=== PATIENT | female | born 1965 | race Caucasian/White ===

== ENCOUNTER 2017-12-23 08:56 | Outpatient (CLI) | payer BC ==
[~2017-12-23 08:56] MED LIST: AMOX-580 PO; DOCU-28 PO; FAMO-128 PO; HYDR-565 PO; Hydrocodone Bit/Acetaminophen PO; ONDA4TAB12 PO
== END 2017-12-23 09:55 | disposition home or self-care (01) ==
LOC: ORTHO 08:56
PROVIDERS: ATTEND Nurse Practitioner Family
DX: S62.622A Displaced fracture of middle phalanx of right middle finger, initial encounter for closed fracture (principal); S61.451A Open bite of right hand, initial encounter; I10 Essential (primary) hypertension; Z88.5 Allergy status to narcotic agent; W54.0XXA Bitten by dog, initial encounter; Y93.89 Activity, other specified; Y92.89 Other specified places as the place of occurrence of the external cause; Y99.8 Other external cause status
CPT/HCPCS: 99213

== ENCOUNTER 2017-12-28 14:07 | Outpatient (CLI) | payer BC ==
[~2017-12-28] VITALS: Ht 162.6 cm; Wt 83.4 kg
[2017-12-28 14:06] VITALS: BP 148/74
== END 2017-12-28 14:54 | disposition home or self-care (01) ==
LOC: ORTHO 14:07
PROVIDERS: ATTEND Nurse Practitioner Family
DX: S62.622D Displaced fracture of middle phalanx of right middle finger, subsequent encounter for fracture with routine healing (principal); S61.451D Open bite of right hand, subsequent encounter; I10 Essential (primary) hypertension; W54.0XXD Bitten by dog, subsequent encounter
CPT/HCPCS: 99214; A6449

== ENCOUNTER 2018-01-18 13:07 | Outpatient (CLI) | payer BC ==
[~2018-01-18 13:07] MED LIST changes: -AMOX-580 PO; -HYDR-565 PO
[2018-01-18 17:00] VITALS: BP 134/94
== END 2018-01-18 13:48 | disposition home or self-care (01) ==
LOC: ORTHO 13:07
PROVIDERS: ATTEND Nurse Practitioner Family
DX: S66.801D Unspecified injury of other specified muscles, fascia and tendons at wrist and hand level, right hand, subsequent encounter (principal); S61.451D Open bite of right hand, subsequent encounter; S62.602D Fracture of unspecified phalanx of right middle finger, subsequent encounter for fracture with routine healing; W54.0XXD Bitten by dog, subsequent encounter; Z88.5 Allergy status to narcotic agent
CPT/HCPCS: 99215

== ENCOUNTER 2018-01-19 11:31 | Outpatient (CLI) | payer BC ==
[2018-01-19 12:38] VITALS: BP 157/82
== END 2018-01-19 12:44 | disposition home or self-care (01) ==
LOC: ORTHO 11:31
PROVIDERS: ATTEND Nurse Practitioner Family
DX: S62.612D Displaced fracture of proximal phalanx of right middle finger, subsequent encounter for fracture with routine healing (principal); I10 Essential (primary) hypertension; X58.XXXD Exposure to other specified factors, subsequent encounter
CPT/HCPCS: 73120; 99213

== ENCOUNTER 2018-02-09 10:58 | Outpatient (CLI) | payer BC | END 2018-02-09 11:15 | disposition home or self-care (01) | LOC: ORTHO 10:58 | PROVIDERS: ATTEND Nurse Practitioner Family | DX: S66.801D Unspecified injury of other specified muscles, fascia and tendons at wrist and hand level, right hand, subsequent encounter (principal); S61.451D Open bite of right hand, subsequent encounter; S62.609D Fracture of unspecified phalanx of unspecified finger, subsequent encounter for fracture with routine healing; Z88.8 Allergy status to other drugs, medicaments and biological substances; W54.0XXD Bitten by dog, subsequent encounter | CPT/HCPCS: 99212 ==

== ENCOUNTER 2018-02-16 11:33 | Outpatient (CLI) | payer BC | END 2018-02-16 11:52 | disposition home or self-care (01) | LOC: ORTHO 11:33 | PROVIDERS: ATTEND Nurse Practitioner Family | DX: S66.801D Unspecified injury of other specified muscles, fascia and tendons at wrist and hand level, right hand, subsequent encounter (principal); S61.451D Open bite of right hand, subsequent encounter; S62.609 Fracture of unspecified phalanx of unspecified finger; I10 Essential (primary) hypertension; Z88.5 Allergy status to narcotic agent; X58.XXXD Exposure to other specified factors, subsequent encounter | CPT/HCPCS: 99212 ==

== ENCOUNTER 2021-05-20 17:55 | Inpatient (IN) | payer BC ==
[~2021-05-20] VITALS: Ht 167.6 cm; Wt 97.7 kg
[2021-05-20] MEDS ORDERED: normal saline 1000ML IV soln IVB ONE (18:05)
[2021-05-20] MEDS ORDERED: ondansetron/PF 4mg/2ml inj IV ONE (18:05)
[2021-05-20 18:19] LABS: BASOPHILS # (AUTO) 0.1 X10'3 (0-0.2); BASOPHILS % (AUTO) 0.5 % (0-1); EOSINOPHILS # (AUTO) 0.1 X10'3 (0-0.9); EOSINOPHILS % (AUTO) 1.2 % (0-6); HEMATOCRIT 45.3 % (35.0-45.0); HEMOGLOBIN 15.2 g/dl (12.0-16.0); LYMPHOCYTES # (AUTO) 3.6 X10'3 (1.1-4.8); LYMPHOCYTES % (AUTO) 32.5 % (21-51); MEAN CORPUSCULAR HGB CONC 33.6 g/dL (33.0-36.5); MEAN CORPUSCULAR VOLUME 92.4 FL (78-98); MEAN PLATELET VOLUME 7.6 FL (7.4-10.4); MONOCYTES # (AUTO) 0.6 X10'3 (0-0.9); MONOCYTES % (AUTO) 5.4 % (2-12); NEUTROPHILS # (AUTO) 6.7 X10'3 (1.8-7.7); NEUTROPHILS % (AUTO) 60.4 % (42-75); PLATELET COUNT 349 X10'3 (140-440); RED CELL DISTRIBUTION WIDTH 13.9 % (11.5-14.5)
[2021-05-20 18:35] LABS: ALANINE AMINOTRANSFERASE 50 U/L (12-78); ALBUMIN 4.5 G/DL (3.4-5.0); ALBUMIN/GLOBULIN RATIO 1.1 (1.1-1.5); ALKALINE PHOSPHATASE 117 IU/L (46-116); ANION GAP 17 (8-16); ASPARTATE AMINO TRANSFERASE 30 U/L (10-37); BILIRUBIN,TOTAL 0.4 MG/DL (0.1-1.0); BLOOD UREA NITROGEN 16 MG/DL (7-18); BUN/CREATININE RATIO 18.4 (6.6-38.0); CALCIUM 10.4 MG/DL (8.5-10.1); CHLORIDE 104 MMOL/L (99-107); CREATININE 0.87 MG/DL (0.40-0.90); GLUCOSE 146 MG/DL (70-104); SODIUM 144 MMOL/L (135-145); TOTAL CARBON DIOXIDE 22.7 MMOL/L (24-32); TOTAL PROTEIN 8.5 G/DL (6.4-8.2); eGFR 68 ML/MIN
[2021-05-20 18:36] LABS: POTASSIUM 3.1 MMOL/L (3.5-5.1)
[2021-05-20 18:42] LABS: ETHANOL < 0.010 GM/DL (0.0-0.010); LIPASE 591 U/L (73-393)
[2021-05-20] MEDS ORDERED: CefTRIAXone 2gm/D5W 50ml BAG 50 ML IV ONE (19:15)
[2021-05-20] MEDS ORDERED: normal saline 1000ML IV soln IV ONE (19:15)
[2021-05-20] MEDS ORDERED: iohexol 350MG/ML 100ml bottle IV ONE (19:34)
[2021-05-20 19:40] LABS: URINE AMPHETAMINE SCREEN NEGATIVE (Neg); URINE BARBITUATE SCREEN NEGATIVE (Neg); URINE BENZODIAZEPINES SCREEN NEGATIVE (Neg); URINE CANNABINOID SCREEN POSITIVE (Neg); URINE COCAINE SCREEN NEGATIVE (Neg); URINE METHADONE SCREEN NEGATIVE (Neg); URINE OPIATE SCREEN NEGATIVE (Neg); URINE PHENCYCLIDINE SCREEN NEGATIVE (Neg)
[2021-05-20 19:47] LABS: CLARITY,URINE CLEAR (Clear); COLOR,URINE YELLOW (Yellow); UA COLLECTION TYPE STRAIGHT CATH
[2021-05-20 19:48] LABS: GLUCOSE, URINE NEGATIVE (Neg); KETONES,URINE 40 mg/dl (Neg); LEUKOCYTE ESTERASE ,URINE NEGATIVE (Neg); NITRITES, URINE NEGATIVE (Neg); OCCULT BLOOD,URINE TRACE-LYSED (Neg); PROTEIN,URINE TRACE mg/dl (Neg); UROBILINOGEN,URINE 0.2 E.U/dL (0.2-1.0)
[2021-05-20 19:57] LABS: HYALINE CASTS 0-3 /LPF (NEGATIVE); SQUAMOUS EPITHELIAL CELL,UR FEW /LPF (FEW)
[2021-05-20 19:58] LABS: BACTERIA,URINE 1+ /HPF (Neg)
[2021-05-20 20:44] LABS: ABG HCO3 21.4 mmol/L (22.0-26.0); ABG OXYGEN SATURATION 97.1 % (94-97); ABG PCO2 (T) 31.4 mmHg (32.0-45.0); ABG PO2 (T) 89.2 mmHg (75.0-100.0); ALLEN'S TEST POSITIVE; FCOHb 1.3 % (0.0-3.9); FO2Hb 95.8 % (94-97); PATIENT TEMPERATURE 36.1; TOTAL HEMOGLOBIN 13.6 G/dl (12.0-16.0)
[2021-05-20] MEDS ORDERED: temazepam 15mg capsule PO PRN (21:00)
[2021-05-20] MEDS ORDERED: HYDROcodone/acetaminophen 5mg/325mg tablet PO PRN (22:40)
[2021-05-20] MEDS ORDERED: ondansetron 4mg rapidly disintigrating tab PO PRN (22:40)
[2021-05-20] MEDS ORDERED: mag hydrox/Alum hydrox/simeth 30ml oral suspension PO PRN (22:40)
[2021-05-20] MEDS ORDERED: potassium Cl 40MEQ/1/2NS 520ml 520 ML IV PRN ×2 (22:40)
[2021-05-20] MEDS ORDERED: ondansetron/PF 4mg/2ml inj IV PRN (22:40)
[2021-05-20] MEDS ORDERED: bisacodyl 10mg suppository rectal RC PRN (22:40)
[2021-05-20] MEDS ORDERED: acetaminophen 325mg tablet PO PRN ×2 (22:40)
[2021-05-20] MEDS ORDERED: diphenhydrAMINE 50 mg/ml inj IV PRN (22:40)
[2021-05-20] MEDS ORDERED: normal saline 1000ml 1,000 ML IV SCH (22:40)
[2021-05-20] MEDS ORDERED: magnesium hydroxide 30ml (MOM) UD suspension PO PRN (22:40)
[2021-05-20] MEDS ORDERED: acetaminophen 650mg rectal suppository RC PRN (22:40)
[2021-05-20] MEDS ORDERED: diphenhydrAMINE 25mg capsule PO PRN (22:40)
[2021-05-20] MEDS ORDERED: potassium Cl 20 mEq SR tablet PO PRN ×2 (22:40)
[2021-05-20] MEDS ORDERED: HYDROcodone/acetaminophen 10/325mg tab PO PRN (22:40)
[2021-05-20 23:08] LABS: HEMOGLOBIN A1C 6.1 % (4.5-6.2)
[2021-05-20 23:15] LABS: MAGNESIUM 2.5 MG/DL (1.5-2.4); PHOSPHORUS 1.9 MG/DL (2.3-4.5)
[2021-05-20 23:43] LABS: D-DIMER 0.27 MG/L FEU (0-0.50); PARTIAL THROMBOPLASTIN TIME 26 SECONDS (22-32)
[2021-05-21 02:31] LABS: BASOPHILS % (AUTO) 0.1 % (0-1); EOSINOPHILS % (AUTO) 0.3 % (0-6); HEMATOCRIT 38.2 % (35.0-45.0); HEMOGLOBIN 12.7 g/dl (12.0-16.0); LYMPHOCYTES # (AUTO) 1.1 X10'3 (1.1-4.8); LYMPHOCYTES % (AUTO) 15.4 % (21-51); MEAN CORPUSCULAR HEMOGLOBIN 30.9 PG (27.0-31.0); MEAN CORPUSCULAR HGB CONC 33.2 g/dL (33.0-36.5); MEAN CORPUSCULAR VOLUME 92.9 FL (78-98); MEAN PLATELET VOLUME 7.4 FL (7.4-10.4); MONOCYTES # (AUTO) 0.4 X10'3 (0-0.9); MONOCYTES % (AUTO) 5.3 % (2-12); NEUTROPHILS # (AUTO) 5.5 X10'3 (1.8-7.7); NEUTROPHILS % (AUTO) 78.9 % (42-75); PLATELET COUNT 255 X10'3 (140-440); RED BLOOD COUNT 4.12 X10'6 (4.20-5.60); RED CELL DISTRIBUTION WIDTH 13.7 % (11.5-14.5)
[2021-05-21 02:42] LABS: ALANINE AMINOTRANSFERASE 40 U/L (12-78); ALBUMIN 3.1 G/DL (3.4-5.0); ALBUMIN/GLOBULIN RATIO 0.9 (1.1-1.5); ALKALINE PHOSPHATASE 81 IU/L (46-116); ANION GAP 7 (8-16); ASPARTATE AMINO TRANSFERASE 24 U/L (10-37); BILIRUBIN,TOTAL 0.4 MG/DL (0.1-1.0); BLOOD UREA NITROGEN 10 MG/DL (7-18); BUN/CREATININE RATIO 17.2 (6.6-38.0); CALCIUM 8.4 MG/DL (8.5-10.1); CHLORIDE 112 MMOL/L (99-107); CREATININE 0.58 MG/DL (0.40-0.90); GLUCOSE 96 MG/DL (70-104); POTASSIUM 4.1 MMOL/L (3.5-5.1); SODIUM 144 MMOL/L (135-145); TOTAL CARBON DIOXIDE 25.2 MMOL/L (24-32); TOTAL PROTEIN 6.4 G/DL (6.4-8.2); eGFR > 90 ML/MIN
--- NOTE | 2021-05-21 06:43 | NUR ---
pt ok to speak with over phone. updated on POC for pt. Pt has no distress at this time.
--- NOTE | 2021-05-21 07:15 | NUR ---
pt claustrophobic, mri form filled out and sent. page to hospitalist for medications for MRI. awaiting call back.
[2021-05-21] MEDS ORDERED: losartan 50mg tablet PO SCH (08:00)
[2021-05-21] MEDS ORDERED: docusate sod 100mg capsule PO SCH (08:00)
[2021-05-21] MEDS ORDERED: aspirin 81mg, enteric-coated 1 TAB TABLET.DR PO SCH (08:00)
[2021-05-21] MEDS ORDERED: K and/or MAG REPLACEMENT MC SCH (08:00)
[2021-05-21] MEDS ORDERED: heparin, porcine 5000 units/ml vial SQ SCH (08:00)
--- NOTE | 2021-05-21 09:05 | NUR ---
mri will be here in 15 min, dr mora gave verbal oder for ativan 0.5mg iv. will admin once availabile
--- NOTE | 2021-05-21 09:06 | NUR ---
eeg called stated she has one pt before and will call to see if pt on floor once finished.
[2021-05-21] MEDS ORDERED: LORazepam 2 mg/ml vial IV ONE (09:10)
[2021-05-21] MEDS ORDERED: PARO10TA4 PO (12:41)
[2021-05-21] MEDS ORDERED: ATOR20TA66 PO (12:41)
[2021-05-21] MEDS ORDERED: LOSA100T57 PO (12:41)
[2021-05-21 12:50] VITALS: BP 130/63
--- NOTE | 2021-05-21 13:15 | NUR ---
report called to [facility] short stay. spoke with dr mora after. stated will review mri and eeg and call back, not to transfer pt yet.
--- NOTE | 2021-05-21 14:42 | NUR ---
Rec'd report from ALEXIA Glez-pt transferred self to [facility]-Dr Esquivel to bedside w/in 5 "-stated pt to D/C to home and F/U w/PMD-Pt son called-void X1-PIV D/C'd w/tip intact-pt to vehicle via W/C w/all belongings Addendum: 05/21/21 at 1446 by Estela Larsen RN Amended: Links added.
[2021-05-21] MEDS ORDERED: CefTRIAXone/D5W-Rocephin 1gm 50 ML IV SCH (19:00)
[2021-05-21] MEDS ORDERED: lactobacillus rhamnosus 10,000 MMU CELLS/CAPSULE PO SCH (20:00)
== END 2021-05-21 14:00 | disposition home or self-care (01) | DRG 69 ==
LOC: ER 17:55 → ED HOLD 22:46
PROVIDERS: ADMIT Family Medicine; ATTEND Internal Medicine
PROC: B3251ZZ Computerized Tomography (CT Scan) of Bilateral Common Carotid Arteries using Low Osmolar Contrast (ICD-10-PCS; 2021-05-20)
PROC: B32G1ZZ Computerized Tomography (CT Scan) of Bilateral Vertebral Arteries using Low Osmolar Contrast (ICD-10-PCS; 2021-05-20)
PROC: B32R1ZZ Computerized Tomography (CT Scan) of Intracranial Arteries using Low Osmolar Contrast (ICD-10-PCS; 2021-05-20)
PROC: B3281ZZ Computerized Tomography (CT Scan) of Bilateral Internal Carotid Arteries using Low Osmolar Contrast (ICD-10-PCS; 2021-05-20)
PROC: 4A10X4Z Monitoring of Central Nervous Electrical Activity, External Approach (ICD-10-PCS; principal; 2021-05-21)
DX: G45.9 Transient cerebral ischemic attack, unspecified (principal); I16.1 Hypertensive emergency; E87.2 Acidosis; N39.0 Urinary tract infection, site not specified; I12.9 Hypertensive chronic kidney disease with stage 1 through stage 4 chronic kidney disease, or unspecified chronic kidney disease; N18.9 Chronic kidney disease, unspecified; M19.90 Unspecified osteoarthritis, unspecified site; E78.5 Hyperlipidemia, unspecified; R00.1 Bradycardia, unspecified; E87.6 Hypokalemia; F12.129 Cannabis abuse with intoxication, unspecified; F32.A Depression, unspecified; E83.39 Other disorders of phosphorus metabolism; Z91.011 Allergy to milk products; Z88.6 Allergy status to analgesic agent; Z79.899 Other long term (current) drug therapy; Z87.442 Personal history of urinary calculi; Z90.710 Acquired absence of both cervix and uterus
CPT/HCPCS: 36415; 36600; 70450; 70496; 70498; 70551; 71045; 74176; 80053; 80305; 80320; 81001; 82803; 83036; 83605; 83690; 83735; 83880; 84100; 84145; 84443; 84484; 85018; 85025; 85379; 85610; 85730; 87040; 87088; 93005; 93306; 95816; 99285; G0378; J0696; J1644; J2060; J2405; J7030; Q9967